=== PATIENT | male | born 1940 ===

== ENCOUNTER 2016-10-03 12:38 | Inpatient (IN) | payer MEDICARE ==
[2016-10-03] VITALS (7 sets, daily range): BP systolic 135–165; BP diastolic 68–90; PULSE 72–86; RESP 16–20; TEMP 98.2–98.7; O2SAT 94–99
[~2016-10-03] VITALS: Ht 175.3 cm; Wt 105.3 kg
[~2016-10-03 12:38] MED LIST: 1-ME1LIQ PO; ACET325 PO; ASPI325T PO; FISH120014; FURO1TAB93 PO; GLIP10TA6 PO; METF500 PO; MULTTAB50; lantus INJ
[2016-10-03] MEDS ORDERED: SODIUM CHLOR 0.9% 1000 ML INJ 1,000 ML IV ONE (14:25)
[2016-10-03 14:38] LABS: AUTOMATED NEUTROPHIL # 6.9 TH/MM3 (1.8-7.7); BASOPHIL % 0.5 % (0.0-2.0); EOSINOPHIL # 0.3 TH/MM3 (0-0.4); EOSINOPHIL % 2.5 % (0.0-4.0); HEMATOCRIT 38.3 % (39.0-51.0); HEMO FLAGS DIFF FINAL; I-STAT SODIUM 137 MMOL/L (138-146); LYMPH % 20.3 % (9.0-44.0); MEAN CELL VOLUME 86.8 FL (80.0-100.0); MEAN CORPUSCULAR HEMOGLOBIN 30.4 PG (27.0-34.0); MEAN CORPUSCULAR HGB CONC 35.1 % (32.0-36.0); MONO % 8.3 % (0.0-8.0); NEUT % 68.4 % (16.0-70.0); PLATELET COUNT 277 TH/MM3 (150-450); RED BLOOD COUNT 4.42 MIL/MM3 (4.50-5.90); RED CELL DISTRIBUTION WIDTH 12.6 % (11.6-17.2); WHITE BLOOD COUNT 10.1 TH/MM3 (4.0-11.0)
--- NOTE | 2016-10-03 14:44 | RADRPT ---
EXAM DATE/TIME: 10/03/2016 14:31 [facility] COMPARISON: No previous studies available for comparison. INDICATIONS : Stroke alert, aphasia. RADIATION DOSE: 49.46 CTDIvol (mGy) This report was called by Dr. Mata to Dr. Macias at 1441. MEDICAL HISTORY : Non-responsive. SURGICAL HISTORY : Non-responsive. ENCOUNTER: Initial ACUITY: 1 day PAIN SCALE: Non-responsive LOCATION: cranial TECHNIQUE: Multiple contiguous axial images were obtained of the head. Using automated exposure control and adj ustment of the mA and/or kV according to patient size, radiation dose was kept as low as reasonably a chievable to obtain optimal diagnostic quality images. FINDINGS: CEREBRUM: The ventricles are normal for age. No evidence of midline shift, mass lesion, hemorrhage or acute in farction. No extra-axial fluid collections are seen. Periventricular white matter hypodensities fabian leena chronic small vessel ischemic change. POSTERIOR FOSSA: The cerebellum and brainstem are intact. The 4th ventricle is midline. The cerebellopontine angle i s unremarkable. EXTRACRANIAL: The visualized portion of the orbits is intact. SKULL: The calvaria is intact. No evidence of skull fracture. CONCLUSION: Chronic white matter ischemic changes. No acute intracranial findings. Margarito Mata MD on October 03, 2016 at 14:39 Board Certified Radiologist. This report was verified electronically.
[2016-10-03] MEDS ORDERED: LEVO112T2 PO (14:46)
[2016-10-03] MEDS ORDERED: FURO1TAB60 PO (14:46)
[2016-10-03] MEDS ORDERED: LANTUS2P SQ (14:46)
[2016-10-03] MEDS ORDERED: GLIP10TA6 PO (14:46)
[2016-10-03] MEDS ORDERED: METF1000 PO (14:46)
[2016-10-03] MEDS ORDERED: LISI40TA PO (14:46)
[2016-10-03 14:48] LABS: APTT (PATIENT) 25.3 SEC (24.3-30.1); INTERNATIONAL NORMALIZED RATIO 0.9 RATIO; PROTHROMBIN TIME - PATIENT 10.1 SEC (9.8-11.6)
[2016-10-03 15:04] LABS: CREATINE KINASE 76 U/L (39-308)
--- NOTE | 2016-10-03 15:15 | PD ---
HPI Chief Complaint: Neuro Symptoms/ Deficits Time Seen by Provider: 14:25 Travel History International Travel<30 days: No Contact w/Intl Traveler<30days: No Traveled to known affect area: No History of Present Illness HPI 76-year-old man with a history of diabetes, CAD, who presents to the emergency department complaining of transient speech difficulties. states that he's been a little bit more confused to short-term memory problems ever since he had knee surgery back in February of last year. He's never really had speech difficulties although cemented is slow from the respond to questions. Today at about 8:39 AM this morning she states that while they were eating he had the abrupt onset of pretty pronounced expressive aphasia or word finding difficulties and speech changes. Did not note any other neuro findings at that time. Symptoms resolve. She called her primary doctor who referred her to the emergency department. Patient was asymptomatic when he arrived in the emergency department but then well waiting for room in the waiting room, approximately an hour or so into their way, he developed recurrence of the symptoms. notified the nurse and is brought to the back as a stroke alert. States "it is funny". He has difficulty giving much additional history. Majority of history is obtained from the . History Past Medical History Narrative Medical Diabetes CAD, on 325 aspirin daily Social History Tobacco Use: No Allergies-Medications (Allergen,Severity, Reaction): Coded Allergies: No Known Allergies (Unverified , 10/03/16) Reported Meds & Prescriptions Reported Meds & Active Scripts Active Reported Levothyroxine (Levothyroxine Sodium) 112 Mcg Tab 112 Mcg PO DAILY Lantus Inj (Insulin Glargine) 1,000 Unit/10 Ml Vial 45 Units SQ DAILY Glipizide 10 Mg Tab 10 Mg PO DAILY Take 30 minutes before a meal Lisinopril 40 Mg Tab 40 Mg PO DAILY Lasix (Furosemide) 40 Mg Tab 40 Mg PO DAILY Metformin (Metformin HCl) 1,000 Mg Tab 1,000 Mg PO DAILY With a meal Review of Systems Except as stated in HPI: all other systems reviewed are Neg Physical Exam Narrative GENERAL: Well-appearing 76 year-old man, no acute distress. SKIN: Focused skin assessment warm/dry. HEAD: Atraumatic. Normocephalic. EYES: Pupils equal and round. No scleral icterus. No injection or drainage. ENT: No nasal bleeding or discharge. Mucous membranes pink and moist. NECK: Trachea midline. No JVD. CARDIOVASCULAR: Regular rate and rhythm. No murmur appreciated. RESPIRATORY: No accessory muscle use. Clear to auscultation. Breath sounds equal bilaterally. GASTROINTESTINAL: Abdomen soft, non-tender, nondistended. Hepatic and splenic margins not palpable. MUSCULOSKELETAL: No obvious deformities. No clubbing. No cyanosis. No edema. NEUROLOGICAL: Awake and alert. Cranial nerves are intact. Motor full and equal upper and lower extremities. Normal finger to nose. Sensations intact and symmetric. Patient has some expressive aphasia or word finding difficulties and difficulty fully expressing his thoughts. This initially was fairly pronounced, repeat evaluation symptoms at all but resolved. PSYCHIATRIC: Appropriate mood and affect; insight and judgment normal. Data Data Last Documented VS Vital Signs Date Time Temp Pulse Resp B/P Pulse Ox O2 Delivery O2 Flow Rate FiO2 10/03/16 14:31 99 Room Air 2 10/03/16 14:15 81 18 165/82 10/03/16 12:47 98.2 Orders Electrocardiogram (10/03/16 ) Activity Bed Rest (10/03/16 ) Electrocardiogram (10/03/16 ) I-Stat Creatinine (10/03/16 14:25) I-Stat Profile (10/03/16 14:25) Prothrombin Time / Inr (Pt) (10/03/16 14:25) Act Partial Throm Time (Ptt) (10/03/16 14:25) Complete Blood Count With Diff (10/03/16 14:25) Fibrinogen (10/03/16 14:25) Creatine Kinase (Cpk) (10/03/16 14:25) Troponin I (10/03/16 14:25) Ua Includes Microscopic (10/03/16 14:25) Drug Screen, Random Urine (10/03/16 14:25) Type And Screen (10/03/16 14:25) Ct Brain W/O Iv Contrast(Rout) (10/03/16 ) Consult Neurology (10/03/16 ) Blood Glucose (10/03/16 14:25) Ecg Monitoring (10/03/16 14:25) Neuro Checks Q2HX12,Q4H (10/03/16 14:25) Nursing Bedside Swallow Assess .ONCE (10/03/16 14:25) Iv Access Insert/Monitor (10/03/16 14:25) NPO (10/03/16 14:25) Oximetry (10/03/16 14:25) Oxygen Administration (10/03/16 14:25) Sodium Chlor 0.9% 1000 Ml Inj (Ns 1000 M (10/03/16 14:25) Resp Oxygen Jb C Titrat 1-4 L (10/03/16 14:25) Cath For Specimen (10/03/16 14:25) (Hub Use Only)Inp Phy Cons/Ref (10/03/16 ) Admit Order (Ed Use Only) (10/03/16 ) Labs Laboratory Tests Test 10/03/16 14:20 White Blood Count 10.1 TH/MM3 Red Blood Count 4.42 MIL/MM3 Hemoglobin 13.4 GM/DL Bedside Hemoglobin 13.9 G/DL Hematocrit 38.3 % Bedside Hematocrit 41.0 % Mean Corpuscular Volume 86.8 FL Mean Corpuscular Hemoglobin 30.4 PG Mean Corpuscular Hemoglobin 35.1 % Concent Red Cell Distribution Width 12.6 % Platelet Count 277 TH/MM3 Mean Platelet Volume 8.7 FL Neutrophils (%) (Auto) 68.4 % Lymphocytes (%) (Auto) 20.3 % Monocytes (%) (Auto) 8.3 % Eosinophils (%) (Auto) 2.5 % Basophils (%) (Auto) 0.5 % Neutrophils # (Auto) 6.9 TH/MM3 Lymphocytes # (Auto) 2.0 TH/MM3 Monocytes # (Auto) 0.8 TH/MM3 Eosinophils # (Auto) 0.3 TH/MM3 Basophils # (Auto) 0.0 TH/MM3 CBC Comment DIFF FINAL Differential Comment Prothrombin Time 10.1 SEC Prothromb Time International 0.9 RATIO Ratio Activated Partial 25.3 SEC Thromboplast Time Fibrinogen 320 mg/dL Bedside Sodium 137 MMOL/L Bedside Potassium 4.0 MMOL/L Bedside Chloride 99 MMOL/L Bedside Blood Urea Nitrogen 22 MG/DL Bedside Creatinine 1.2 MG/DL Bedside Glucose 165 MG/DL Total Creatine Kinase 76 U/L Troponin I LESS THAN 0.02 NG/ML Blood Type A POSITIVE Antibody Screen NEGATIVE Blood Bank Comment MDM Medical Decision Making Medical Screen Exam Complete: Yes Emergency Medical Condition: Yes Interpretation(s) My review of EKG: Normal sinus rhythm at a rate of 74, leftward axis, normal interval, no acute ischemia. LABS: CBC unremarkable Point of care chemistries are unremarkable Troponin negative Coags are unremarkable Head CT: Chronic right matter small vessel ischemic changes. No acute intracranial findings. Differential Diagnosis CVA, TIA, head bleed, infection, other Narrative Course Medical decision making INITIAL cause a 76 year-old man was called as a stroke alert after he developed recurrence of his expressive aphasia while waiting in the waiting room following an episode this morning. Symptoms have all but resolved by the time he came back from CT scan. I spoke with Dr. Sanchez initially. Given the resolution of symptoms, patient is not a candidate for TPA. Patient will be admitted for monitoring, and further evaluation. Diagnosis Primary Impression: TIA (transient ischemic attack) Qualified Code: G45.9 - Transient cerebral ischemia, unspecified type Bob Macias MD Oct 03, 2016 15:15
[2016-10-03] MEDS ORDERED: MAGNESIUM HYDROXIDE SUSP 30 ML CUP PO PRN (16:00)
[2016-10-03] MEDS ORDERED: ONDANSETRON HCL 4 MG/2 ML VIAL IVP PRN (16:00)
[2016-10-03] MEDS ORDERED: TEMAZEPAM 15 MG CAP PO PRN (16:00)
[2016-10-03] MEDS ORDERED: NALOXONE HCL 0.4 MG/ML AMP IV PRN (16:00)
[2016-10-03] MEDS ORDERED: ACETAMINOPHEN 325 MG TAB PO PRN (16:00)
[2016-10-03] MEDS ORDERED: SODIUM CHLORIDE 0.9% FLUSH 10 ML FLUSH IV FLUSH PRN (16:00)
[2016-10-03] MEDS ORDERED: ENOXAPARIN SODIUM 40 MG/0.4 ML SYRINGE SQ SCH (17:00)
--- NOTE | 2016-10-03 17:48 | HHI.HP ---
[facility] Unknown Admission Diagnosis TIA, aphasia Diagnoses: Chief Complaint: Slurred speech Travel History International Travel<30 Days: No Contact w/Intl Traveler <30 Da: No Traveled to Known Affected Are: No History of Present Illness Mr. Montalvo is a pleasant 76-year-old male with a history of diabetes mellitus, hypothyroidism, CAD who presents to the emergency department today due to slurred speech. At about 8:39 AM this morning patient had abrupt onset of expressive aphasia as well as dysarthria. He could not find right words and his speech was slurred. He was getting very frustrated. His symptoms resolved. However based on his primary care doctor's advise patient came to the emergency department. In the waiting area patient again had similar symptoms. Patient's did not notice any facial asymmetry. Patient did not have any weakness area no chest pain, shortness of breath, fever or chills. Denies any changes in bladder or bowel habits. Due to his symptoms in the emergency room waiting area a stroke alert was called. Currently patient is doing well. Per RN he passed bedside swallow test. Review of Systems ROS Limitations: Other (negative except as noted in the history of present illness) Past Family Social History Past Medical History Diabetes mellitus, hypothyroidism, CAD Past Surgical History Left knee surgery 17 years ago, right knee surgery 8 months ago. Reported Medications Levothyroxine (Levothyroxine Sodium) 112 Mcg Tab 112 Mcg PO DAILY Lantus Inj (Insulin Glargine) 1,000 Unit/10 Ml Vial 45 Units SQ DAILY Glipizide 10 Mg Tab 10 Mg PO DAILY Take 30 minutes before a meal Lisinopril 40 Mg Tab 40 Mg PO DAILY Lasix (Furosemide) 40 Mg Tab 40 Mg PO DAILY Metformin (Metformin HCl) 1,000 Mg Tab 1,000 Mg PO DAILY With a meal Allergies: Coded Allergies: No Known Allergies (Unverified , 10/03/16) Family History Significant family history of diabetes mellitus. Patient's mother had a stroke. Social History Denies using tobacco, alcohol, illicit drugs. Physical Exam Vital Signs Vital Signs Date Time Temp Pulse Resp B/P Pulse Ox O2 Delivery O2 Flow Rate FiO2 10/03/16 16:21 72 18 135/68 95 Room Air 10/03/16 14:31 99 Room Air 2 10/03/16 14:31 99 Room Air 10/03/16 14:15 81 18 165/82 96 Room Air 10/03/16 12:47 98.2 86 16 162/90 98 Physical Exam GENERAL: This is a well-nourished, well-developed patient, in no apparent distress. SKIN: No rashes, ecchymoses or lesions. Warm and dry. HEAD: Atraumatic. Normocephalic. No temporal or scalp tenderness. EYES: Pupils equal round and reactive. No injection or drainage. ENT: Nose without bleeding, purulent drainage or septal hematoma. Airway patent. NECK: Trachea midline. No lymphadenopathy. Supple, nontender, no meningeal signs. CARDIOVASCULAR: Regular rate and rhythm without murmurs, gallops, or rubs. No JVD. RESPIRATORY: Clear to auscultation. Breath sounds equal bilaterally. No wheezes , rales, or rhonchi. GASTROINTESTINAL: Abdomen soft, non-tender, nondistended. No guarding. MUSCULOSKELETAL: Extremities without clubbing, cyanosis, or edema. NEUROLOGICAL: Awake and alert. Cranial nerves II through XII intact. No focal neurological deficits. Normal speech. Laboratory Laboratory Tests Test 10/03/16 14:20 White Blood Count 10.1 Red Blood Count 4.42 Hemoglobin 13.4 Bedside Hemoglobin 13.9 Hematocrit 38.3 Bedside Hematocrit 41.0 Mean Corpuscular Volume 86.8 Mean Corpuscular Hemoglobin 30.4 Mean Corpuscular Hemoglobin 35.1 Concent Red Cell Distribution Width 12.6 Platelet Count 277 Mean Platelet Volume 8.7 Neutrophils (%) (Auto) 68.4 Lymphocytes (%) (Auto) 20.3 Monocytes (%) (Auto) 8.3 Eosinophils (%) (Auto) 2.5 Basophils (%) (Auto) 0.5 Neutrophils # (Auto) 6.9 Lymphocytes # (Auto) 2.0 Monocytes # (Auto) 0.8 Eosinophils # (Auto) 0.3 Basophils # (Auto) 0.0 CBC Comment DIFF FINAL Differential Comment Prothrombin Time 10.1 Prothromb Time International 0.9 Ratio Activated Partial 25.3 Thromboplast Time Fibrinogen 320 Bedside Sodium 137 Bedside Potassium 4.0 Bedside Chloride 99 Bedside Blood Urea Nitrogen 22 Bedside Creatinine 1.2 Bedside Glucose 165 Total Creatine Kinase 76 Troponin I LESS THAN 0.02 Blood Type A POSITIVE Antibody Screen NEGATIVE Blood Bank Comment Result Diagram: 10/03/16 1420 Imaging Last Impressions Head CT 10/03/16 0000 Signed Impressions: Service Date/Time: Monday, October 03, 2016 14:31 - CONCLUSION: Chronic white matter ischemic changes. No acute intracranial findings. Margarito Mata MD Assessment and Plan Problem List: (1) TIA (transient ischemic attack) ICD Code: G45.9 Status: Acute (2) Hypothyroidism ICD Code: E03.9 Status: Acute (3) DM (diabetes mellitus) ICD Code: E11.9 Status: Acute (4) CAD (coronary artery disease) ICD Code: I25.10 Status: Acute Assessment and Plan Mr. Montalvo is a pleasant 76-year-old male with a history of diabetes mellitus, hypertension, CAD, hypothyroidism who presented to the emergency department due to expressive dysphasia as well as dysarthria. His initial symptoms lasted 15-30 minutes. Symptoms resolved but recurred in the emergency department waiting area. Stroke alert was called. - Probable TIA - ABCD2 score 4 (moderate risk - Age >60, Speech disturbance without weakness , symptoms 10-59 minutes, diabetes). - Patient takes aspirin 325 mg at home. May need to switch to Plavix 35 mg daily. - CT head unremarkable for any acute findings. - We'll obtain MRI brain, MRA head, carotid ultrasound. Patient recently had echocardiogram done by Dr. Jose Cho about 6 months ago - We'll obtain echocardiogram report from [facility]. - Lipid profile and basic labs in the AM. - Diabetes mellitus - patient takes metformin, glipizide, Lantus. - We'll reduce Lantus 45 units to 30 units of Levemir daily. - Add sliding scale insulin. - Hypertension - CAD status post 4 stent placed in the past - Continue lisinopril 40 mg daily, amlodipine 10 mg daily - Continue Lasix 40 mg daily. - Hypothyroidism - continue levothyroxine 112 g by mouth daily. Full code. Lovenox. Discussed with Neurologist. Physician Certification 2 Midnight Certification Type: Admission for Inpatient Services Order for Inpatient Services The services are ordered in accordance with Medicare regulations or non- Medicare payer requirements, as applicable. In the case of services not specified as inpatient-only, they are appropriately provided as inpatient services in accordance with the 2-midnight benchmark. Estimated LOS (days): 2 days is the estimated time the patient will need to remain in the hospital, assuming treatment plan goals are met and no additional complications. Post-Hospital Plan: Home Notes: May be discharged earlier if clinically improved and no stroke found. Problem Qualifiers (1) TIA (transient ischemic attack): Qualified Code: G45.9 - Transient cerebral ischemia, unspecified type Lashon Jose DO Oct 03, 2016 5:48 pm
[2016-10-03] MEDS ORDERED: GLUCAGON 1 MG/ML VIAL OTHER PRN (18:30)
[2016-10-03] MEDS ORDERED: DEXTROSE 50% IN WATER 50 ML VIAL(D50) IV PUSH PRN (18:30)
--- NOTE | 2016-10-03 18:57 | MB ---
cc: MARITZA PAYNE MD DATE OF CONSULTATION 10/03/16 1940 REASON FOR CONSULTATION Initially a stroke alert HISTORY OF PRESENT ILLNESS This is a 76-year-old man in his usual state of health known history of diabetes, hypothyroidism, heart disease. He comes in today due to expressive aphasia. It was around 08:39 this morning when he was drinking coffee with his and all of a sudden was having trouble getting words out and then started having like a word salad, became frustrated. His symptoms resolved, however. He called his primary care doctor and again in the waiting area of the hospital the symptoms recurred. After CT, his symptoms resolved and he been back to baseline. The patient did not qualify for TPA due to rapidly resolving symptoms and symptoms are now gone. He denies any weakness, numbness, tingling, chest pain, shortness of breath, headache. PAST MEDICAL HISTORY 1. Coronary artery disease, 2. Hypothyroidism, 3. Diabetes, 4. Left knee surgery 17 years ago and right knee replacement 8 months ago 5. Benign essential tremor. MEDICATIONS Current are 1. Synthroid 2. Lantus 3. Glipizide, 4. Lisinopril, 5. Lasix, 6. Metformin. ALLERGIES None reported. FAMILY HISTORY Diabetes. FAMILY HISTORY Son has also essential tremor, but there is diabetes and stroke in the mother. SOCIAL HISTORY Does not smoke, drink or use drugs. He does consume caffeine. PHYSICAL EXAMINATION VITAL SIGNS: Temperature is 98.2, pulse 72, respiratory rate 18, blood pressure 135/68 satting at 95% room air. NECK: Supple and no appreciable bruits. HEART: Regular. LUNGS: Clear. NEUROLOGIC: He is awake, alert. He is oriented. He is fluent. Pupils reactive. Visual golden full. Face symmetrical. Tongue midline. Motor estrada no drift. No leg lag. Cerebellar testing - He has a tremor consistent with essential tremor on [id number] but no past-pointing. Toes are downgoing. Reflexes are 1-2+. Sensory is normal. Gait is withheld. He is at bedrest. CT brain did not yield any acute findings, but just chronic white matter changes. His labs are reviewed. IMPRESSION A 76-year-old man with expressive aphasia likely consistent with a transient ischemic attack who has risk factors of diabetes, hyperlipidemia and age. Recommend getting a complete stroke workup TIA workup. We will get an MRI of the brain, MRA [place] of [place], carotid ultrasound. Echo was done at [facility] his charge gang weigher Dr. Cho six months ago. If that can be obtained then he does not need a repeat echo. However, since he does take a full dose aspirin every day, I would change him at this point in time to Plavix 75 mg. Get PT, OT eval. Permissible hypertension. I would like to keep head of bed flat tonight. Lovenox for DVT prophylaxis. Get a lipid panel as well and, depending on findings, further recommendations will be made accordingly. MD YOLIS De/ /6:25 PM /6:39 PM
[2016-10-03] MEDS: INSULIN ASPART SUPPLEMENTAL SCALE SQ SCH (21:31)
[2016-10-03] MEDS: SODIUM CHLORIDE 0.9% FLUSH 10 ML FLUSH IV FLUSH SCH (21:31)
--- NOTE | 2016-10-03 22:29 | EKG ---
Date Performed: 10/03/2016 Time Performed: 14:51:41 PTAGE: 76 years EKG: Sinus rhythm BORDERLINE LEFT AXIS DEVIATION BORDERLINE ECG Compared to prior tracing no significant change DOCTOR: Gilbert Sotomayor Interpretating Date/Time 10/03/2016 22:28:52
--- NOTE | 2016-10-03 22:33 | EKG ---
Date Performed: 10/03/2016 Time Performed: 13:36:59 PTAGE: 76 years EKG: Sinus rhythm BORDERLINE LEFT AXIS DEVIATION BORDERLINE ECG NO PREVIOUS TRACING DOCTOR: Gilbert Sotomayor Interpretating Date/Time 10/03/2016 22:32:42
[2016-10-04 00:55] VITALS: BP 134/68; PULSE 78; RESP 18; TEMP 98; O2SAT 94
[2016-10-04 02:00] VITALS: PULSE 81
[2016-10-04 04:34] VITALS: BP 124/72; PULSE 78; RESP 18; TEMP 97.5; O2SAT 98
[2016-10-04] MEDS ORDERED: LEVOTHYROXINE SODIUM 112 MCG TAB PO SCH (06:00)
[2016-10-04] MEDS: INSULIN ASPART SUPPLEMENTAL SCALE SQ SCH ×2 (06:20→11:05)
[2016-10-04 07:20] LABS: BASOPHIL % 0.6 % (0.0-2.0); EOSINOPHIL # 0.2 TH/MM3 (0-0.4); HEMATOCRIT 35.2 % (39.0-51.0); HEMO FLAGS DIFF FINAL; LYMPH % 20.9 % (9.0-44.0); LYMPHOCYTE # 1.6 TH/MM3 (1.0-4.8); MEAN CELL VOLUME 86.9 FL (80.0-100.0); MEAN CORPUSCULAR HEMOGLOBIN 30.1 PG (27.0-34.0); MEAN CORPUSCULAR HGB CONC 34.6 % (32.0-36.0); MONO % 9.6 % (0.0-8.0); NEUT % 65.9 % (16.0-70.0); PLATELET COUNT 249 TH/MM3 (150-450); RED BLOOD COUNT 4.05 MIL/MM3 (4.50-5.90); WHITE BLOOD COUNT 7.6 TH/MM3 (4.0-11.0)
[2016-10-04 07:43] LABS: BICARBONATE 28.6 MEQ/L (21.0-32.0); POTASSIUM 3.7 MEQ/L (3.5-5.1)
[2016-10-04 07:45] LABS: HDL CHOLESTEROL 32.9 MG/DL (40.0-60.0)
[2016-10-04] MEDS ORDERED: INSULIN DETEMIR 100 UNITS/ML VIAL SQ SCH (09:00)
[2016-10-04] MEDS ORDERED: FUROSEMIDE 40 MG TAB PO SCH (09:00)
[2016-10-04] MEDS ORDERED: INSULIN GLARGINE 1,000 UNITS/10 ML VIAL SQ SCH (09:00)
[2016-10-04] MEDS ORDERED: LISINOPRIL 20 MG TAB PO SCH (09:00)
[2016-10-04] MEDS ORDERED: CLOPIDOGREL 75 MG TAB PO SCH (09:00)
[2016-10-04] MEDS ORDERED: ASPIRIN EC 81 MG TABEC PO SCH (09:00)
[2016-10-04 09:15] VITALS: PULSE 73
[2016-10-04 09:16] VITALS: BP 139/80; PULSE 77; RESP 18; TEMP 97; O2SAT 94
[2016-10-04] MEDS: SODIUM CHLORIDE 0.9% FLUSH 10 ML FLUSH IV FLUSH SCH (10:29)
[2016-10-04 10:36] LABS: BACTERIA, URINE OCC /hpf; BLOOD, URINE NEG (NEG); GLUCOSE,URINE NEG (NEG); KETONE, URINE NEG (NEG); MUCUS URINE FEW /lpf (OCC); NITRITE,URINE NEG (NEG); PH, URINE 5.5 (5.0-8.5); SQUAMOUS EPITHELIAL CELL URINE <1 /hpf (0-5); URINE COLOR LIGHT-YELLOW (YELLW/STRAW)
[2016-10-04 10:47] LABS: AMPHETAMINE, URINE NEG (NEG); BARBITURATES, URINE NEG (NEG); COCAINE, URINE NEG (NEG)
--- NOTE | 2016-10-04 11:02 | RADRPT ---
EXAM DATE/TIME: 10/04/2016 09:37 [facility] COMPARISON: No previous studies available for comparison. INDICATIONS : Slurred speech. MEDICAL HISTORY : Diabetes mellitus type 2. Hypothyroidism. SURGICAL HISTORY : Bilateral knee surgeries. ENCOUNTER: Initial ACUITY: 2 day PAIN SCORE: 0/10 LOCATION: head TECHNIQUE: Multiplanar, multisequence MRI of the brain was performed without contrast. FINDINGS: Marked periventricular white matter changes are noted. There is mild central and cortical atrophy. There are no extraaxial fluid collections appreciated. On the susceptibility weighted images there are multiple scattered areas of hemosiderin deposition ev ident. There is no restricted diffusion noted. CONCLUSION: 1. Evidence for periventricular white matter ischemic changes. 2. Scattered areas of hemosiderin deposition scattered uniformly throughout the brain in a punctate fashion suggesting angiopathy. 3. Moderate atrophy. Ezekiel Du MD FACR on October 04, 2016 at 10:49 Board Certified Radiologist. This report was verified electronically.
--- NOTE | 2016-10-04 11:04 | RADRPT ---
EXAM DATE/TIME: 10/04/2016 09:37 [facility] COMPARISON: No previous studies available for comparison. INDICATIONS : Slurred speech. MEDICAL HISTORY : Diabetes mellitus type 2. Hypothyroidism. SURGICAL HISTORY : Bilateral knee surgery. ENCOUNTER: Initial ACUITY: 2 day PAIN SCORE: 0/10 LOCATION: head Please note a normal MRA of the brain does not entirely exclude the possibility of a small aneurysm, nor the possibility of distal intracranial vessel disease. TECHNIQUE: 3D time of flight MRA was performed. Source images, multiplanar STS MIP, and 3D volume MIP reconstru ctions were reviewed. FINDINGS: There is good visualization of intracranial vessels. There is diminutive [employer] on the left. The right AC and MC unremarkable. There is a focal stenosis in the proximal MCA on the left. There is poor filling of the A1 segment as well. CONCLUSION: Atherosclerotic disease as described above with focal MCA stenosis on the left. Ezekiel Du MD FACR on October 04, 2016 at 10:57 Board Certified Radiologist. This report was verified electronically.
--- NOTE | 2016-10-04 13:18 | RADRPT ---
EXAM DATE/TIME: 10/04/2016 10:08 [facility] COMPARISON: No previous studies available for comparison. INDICATIONS : Transient ischemic attack. MEDICAL HISTORY : Angina. Diabetes mellitus type 2. Hypothyroidism. Skin cancer. CAD. Cataracts. Peripheral neuropathy, bilateral legs. Hyperlipidemia. Sleep apnea. Anticoagulant therapy. SURGICAL HISTORY : Coronary artery stent. Bilateral knee replacements. Skin cancer removal; b ilateral arms and scalp. Excision skin lesion. ENCOUNTER: Initial ACUITY: 1 day PAIN SCORE: 0/10 LOCATION: Bilateral neck PEAK SYSTOLIC VELOCITIES (cm/sec): ICA/CCA RATIO: Right: 1.0 Left: 1.1 ICA: Right: 100 Left: 104 CCA: Right: 98 Left: 98 ECA: Right: 151 Left: 111 VERTEBRAL: Right: 52 antegrade Left: 59 antegrade Elevated flow velocities and ICA/CCA ratios have been found to correlate with increased degrees of vessel stenosis, calculated as percentage of diameter relative to a normal segment of distal ICA/CCA FINDINGS: RIGHT CAROTID: There is no evidence for a hemodynamically significant carotid stenosis. Minimal int imal hyperplasia is present with scattered calcific plaque. LEFT CAROTID: There is no evidence for a hemodynamically significant carotid stenosis. Minimal inti mal hyperplasia is present with scattered calcific plaque. VERTEBRAL ARTERIES: Flow is antegrade in both vertebral arteries. MISCELLANEOUS: There are no ancillary masses or adenopathy. CONCLUSION: Negative examination for a hemodynamically significant carotid stenosis. Ezekiel Du MD FACR Board Certified Radiologist. This report was verified electronically.
[2016-10-04 13:37] VITALS: BP 146/85; PULSE 79; RESP 18; TEMP 97.3; O2SAT 93
[2016-10-04] MEDS ORDERED: AMLO10 PO (14:47)
[2016-10-04] MEDS ORDERED: PLAV75TA29 PO (14:47)
--- NOTE | 2016-10-04 14:50 | HHI.PR ---
Subjective Remarks Follow up for TIA. Mr. Montalvo is doing well. No further expressive dysphasia or dysarthria. Wants to go home. Objective Vitals Vital Signs Date Time Temp Pulse Resp B/P Pulse Ox O2 Delivery O2 Flow Rate FiO2 10/04/16 13:37 97.3 79 18 146/85 93 10/04/16 09:16 97.0 77 18 139/80 94 10/04/16 09:15 73 10/04/16 04:34 97.5 78 18 124/72 98 10/04/16 02:00 81 10/04/16 02:00 81 10/04/16 00:55 98.0 78 18 134/68 94 10/03/16 22:12 98.2 77 16 141/72 97 10/03/16 19:05 98.3 76 16 154/80 98 Room Air 10/03/16 18:31 98.7 78 20 154/79 94 Room Air 10/03/16 16:21 72 18 135/68 95 Room Air I/O 10/03/16 10/03/16 10/03/16 10/04/16 10/04/16 10/04/16 07:00 15:00 23:00 07:00 15:00 23:00 Output Total 1200 ml Balance -1200 ml Output Urine Total 1200 ml # Voids 2 Result Diagram: 10/04/1631 10/04/16 0631 Imaging Last Impressions Carotid Artery Ultrasound 10/04/16 0000 Signed Impressions: Service Date/Time: Tuesday, October 04, 2016 10:08 - CONCLUSION: Negative examination for a hemodynamically significant carotid stenosis. Ezekiel Du MD Head CT 10/03/16 0000 Signed Impressions: Service Date/Time: Monday, October 03, 2016 14:31 - CONCLUSION: Chronic white matter ischemic changes. No acute intracranial findings. Margarito Mata MD Objective Remarks GENERAL: Alert, NAD. SKIN: Warm and dry. HEAD: Normocephalic. EYES: No scleral icterus. No injection or drainage. NECK: Supple, trachea midline. No JVD or lymphadenopathy. CARDIOVASCULAR: Regular rate and rhythm without murmurs, gallops, or rubs. RESPIRATORY: Breath sounds equal bilaterally. No accessory muscle use. GASTROINTESTINAL: Abdomen soft, non-tender, nondistended. MUSCULOSKELETAL: No cyanosis, or edema. BACK: Nontender without obvious deformity. No CVA tenderness. Procedures None. A/P Problem List: (1) TIA (transient ischemic attack) ICD Code: G45.9 Status: Acute (2) Hypothyroidism ICD Code: E03.9 Status: Acute (3) DM (diabetes mellitus) ICD Code: E11.9 Status: Acute (4) CAD (coronary artery disease) ICD Code: I25.10 Status: Acute Assessment and Plan Mr. Montalvo is a pleasant 76-year-old male with a history of diabetes mellitus, hypertension, CAD, hypothyroidism who presented to the emergency department due to expressive dysphasia as well as dysarthria. His initial symptoms lasted 15-30 minutes. Symptoms resolved but recurred in the emergency department waiting area. Stroke alert was called. - Probable TIA - ABCD2 score 4 (moderate risk - Age >60, Speech disturbance without weakness , symptoms 10-59 minutes, diabetes). - Patient takes aspirin 325 mg at home. Will switch to Plavix 35 mg daily. - CT head unremarkable for any acute findings. - MRI brain, MRA head, carotid ultrasound unremarkable for any acute findings. Patient recently had echocardiogram done by Dr. Jose Cho about 6 months ago - Start Lipitor 20mg QHS. May be titrated up by PCP - Diabetes mellitus - patient takes metformin, glipizide, Lantus. - Continue home medications upon discharge. - Advised patient to discuss with PCP regarding the need for Glipizide. It would be safer if Glipizide is discontinued and rely on Metformin and insulin. - Hypertension - CAD status post 4 stent placed in the past - Continue lisinopril 40 mg daily, amlodipine 10 mg daily - Continue Lasix 40 mg daily. - Hypothyroidism - continue levothyroxine 112 g by mouth daily. Full code. Lovenox. Discussed with Dr. Sanchez prior to discharge. Discharge patient to home Condition on discharge: Improved Diabetic Diet as tolerated Ad Lisa activity Rx written: Amlodipine 10mg QHS Lipitor 20mg QHS Plavix 75mg Qday STOP Aspirin. Follow-up with primary care physician within one week and Neurology within two weeks. Problem Qualifiers (1) TIA (transient ischemic attack): Qualified Code: G45.9 - Transient cerebral ischemia, unspecified type Lashon Jose DO Oct 04, 2016 14:50
[2016-10-04 16:08] LABS: HEMOGLOBIN A1b 2.3 %; HEMOGLOBIN Ao 81.2 %; HEMOGLOBIN LA1C 2.7 %; HEMOGLOBIN P3 4.1 %
== END 2016-10-04 15:27 | disposition home or self-care (01) | DRG 69 ==
LOC: NEPC 12:38 → NEDA 15:53 → NEDH 19:43 → N05B 22:26
PROVIDERS: ADMIT Hospitalist; ATTEND Hospitalist
DX: G45.9 Transient cerebral ischemic attack, unspecified (principal); R47.01 Aphasia; E11.9 Type 2 diabetes mellitus without complications; I10 Essential (primary) hypertension; E03.9 Hypothyroidism, unspecified; G25.0 Essential tremor; I25.10 Atherosclerotic heart disease of native coronary artery without angina pectoris; Z95.5 Presence of coronary angioplasty implant and graft; Z79.4 Long term (current) use of insulin; Z79.84 Long term (current) use of oral hypoglycemic drugs
CPT/HCPCS: 70450; 70544; 70551; 80048; 80061; 80307; 81001; 82435; 82550; 82565; 82947; 82948; 83036; 84132; 84295; 84484; 84520; 85025; 85384; 85610; 85730; 86850; 86900; 86901; 93005; 93880; 96360; J1650; J1815; J7030